=== PATIENT | female | born 1945 | race American Indian/Alaskan Native ===

== ENCOUNTER 2017-03-20 20:43 | Emergency (ER) | payer MEDICARE, BC ==
[2017-03-20 21:01] VITALS: BMI 31.2
--- NOTE | 2017-03-20 21:23 | C.PDOC ---
History Of Present Illness 71 y/o female presents to ED after accidentally ingesting approximately a spoonful of ODO-BAN. pt has poured it from large container into a small water bottle to make it easier to use; pt recently had cataract surgery and was wearing dark sunglasses. pt accidentally picked up small water bottle filled with odo-ban and took a sip, thinking it was water, and spit it out once tasted. pt c/o irritated feeling to mouth. no chest pain , no sob. no difficulty swallowing. RN called poison control, and told pt need not do anything special besides drink cooling substances. Time Seen by Provider: 03/20/17 21:11 Chief Complaint (Nursing): Ingestion, Accidental History Per: Patient History/Exam Limitations: no limitations Past Medical History Reviewed: Historical Data, Nursing Documentation, Vital Signs Vital Signs: Last Vital Signs Temp 98 F 03/20/17 21:30 Pulse 64 03/20/17 21:30 Resp 20 03/20/17 21:30 BP 180/82 H 03/20/17 21:30 Pulse Ox 98 03/20/17 21:34 - Medical History PMH: HTN Family History: States: Unknown Family Hx - Social History Hx Tobacco Use: No Hx Alcohol Use: No Hx Substance Use: No - Immunization History Hx Tetanus Toxoid Vaccination: No Hx Influenza Vaccination: No Hx Pneumococcal Vaccination: No Review Of Systems Constitutional: Negative for: Fever, Chills Cardiovascular: Negative for: Chest Pain, Light Headedness Respiratory: Negative for: Cough, Shortness of Breath Gastrointestinal: Negative for: Nausea, Vomiting, Abdominal Pain Physical Exam - Physical Exam Appears: Non-toxic, No Acute Distress Skin: Normal Color, Warm, Dry Head: Atraumatic, Normacephalic Oral Mucosa: Moist Tongue: Normal Appearing, No Swelling, No Lesions Lips: Normal Appearing, No Swelling, No Abrasion, Laceration, No Lesions Teeth: Normal Dentition Gingiva: Normal Appearing Throat: Normal, No Erythema, No Exudate, No Drooling Neck: Normal ROM Cardiovascular: Rhythm Regular, No Murmur Respiratory: Normal Breath Sounds, No Rales, No Rhonchi, No Wheezing ED Course And Treatment O2 Sat by Pulse Oximetry: 98 Pulse Ox Interpretation: Normal Progress Note: FARHAD Molina spoke with Makenzie Abbasi at poison control; Per poison control, pt needs only to drink cool water or eat cool soothing foods. pt advised to f/u pmd and to return to ED for any worsening symptoms. Reevaluation Time: 21:28 Reassessment Condition: Improved Medical Decision Making Medical Decision Making: pt to go home per poison control. Return for worse symptoms. Disposition Counseled Patient/Family Regarding: Diagnosis, Need For Followup - Disposition Referrals: Clinic,Med Surg [Primary Care Provider] - Disposition: HOME/ ROUTINE Disposition Time: 21:30 Condition: GOOD Additional Instructions: Eat or drink soft cold foods for next few hours to day. Follow up with your doctor in a few days. Return to ER for any worsening symptoms such as difficulty breathing. difficulty swallowing or any other concerns. . Forms: Gen Discharge Inst [facility] - Clinical Impression Clinical Impression: Ingestion of detergent or soap
[2017-03-20 21:30] VITALS: BP 180/82; PULSE 64; RESP 20; TEMP 98
[2017-03-20 21:33] VITALS: O2SAT 98
== END 2017-03-20 21:57 | disposition home or self-care (01) ==
LOC: SUPCPDRO 20:43 → C.ER 20:43
DX: T65.891A Toxic effect of other specified substances, accidental (unintentional), initial encounter (principal)

== ENCOUNTER 2019-01-23 09:38 | Outpatient (CLI) | payer MEDICARE | END 2019-01-23 09:39 | disposition home or self-care (01) | LOC: C.VASC 09:38 ==